=== PATIENT | male | born 1970 | race African-American/Black ===

== ENCOUNTER 2016-09-19 00:26 | Emergency (ER) | payer OTHER ==
[~2016-09-19] VITALS: Ht 182.9 cm; Wt 70.8 kg
[~2016-09-19 00:26] MED LIST: FLEXERIL10 MG PO; IMODIUM MS REL1 EACH PO; NAPROSYN500 MG PO; NORCO 5/3251 TABLET PO; TAMIFLU75 MG PO; ZOFRAN ODT4 MG PO; ZOFRAN4 MG PO
[2016-09-19 01:09] LABS: EOSINOPHIL (%) 0 % (0-5); HEMATOCRIT 39.4 % (38.0-50.0); IMMATURE GRANULOCYTE (%) 0.3 % (0.0-0.7); INSTRUMENT ABS NEUTROPHIL CT 9.2 K/uL; LYMPHOCYTE COUNT 1.5 K/uL (1.0-2.8); MCHC 32.7 G/DL (30.0-36.0); MCV 85.7 FL (86-99); MEAN PLAT.VOLUME 9.2 uM^3 (9.0-12.4); MONOCYTE (%) 6.7 % (3-12); MONOCYTE COUNT 0.8 K/uL (0-0.8); NEUTROPHIL (%) 79.6 % (45-76); NEUTROPHIL COUNT 9.2 K/uL (1.8-6.4); PLATELET COUNT 201 K/uL (156-360); RBC DIS.WIDTH-CV 14.1 % (11.8-14.6); RBC DIS.WIDTH-SD 44.1 % (39-53); WHITE BLOOD COUNT 11.6 K/uL (4.1-10.2)
[2016-09-19 01:17] LABS: AMYLASE 131 IU/L (1-118); CHLORIDE 106 mEq/L (99-109); POTASSIUM 3.7 mEq/L (3.7-5.4); SODIUM 141 mEq/L (136-147)
[2016-09-19 01:19] LABS: GLUCOSE 82 mg/dL (70-99)
[2016-09-19 01:21] LABS: ANION GAP 12 MEQ/L (2-14)
[2016-09-19 01:22] LABS: SERUM ETHYL ALCOHOL 44 mg/dL
[2016-09-19 01:23] LABS: GFR ESTIMATE (CALCULATED) > 59 mL/min/
[2016-09-19 01:24] LABS: UREA NITROGEN (BUN) 10 mg/dL (9-23)
[2016-09-19 01:26] LABS: LIPASE 5 U/L (1.0-51.0)
[2016-09-19] MEDS ORDERED: DEPAKOTE500 MG PO (03:03)
[2016-09-19] MEDS ORDERED: PERCOCET 5/31 TABLET PO (03:09)
[2016-09-19 03:20] VITALS: BP 131/71
[2016-09-19 03:45] LABS: SAMPLE HEMOLYSIS CHECK 0; SAMPLE ICTERIC CHECK 0; SAMPLE LIPEMIA CHECK 0
== END 2016-09-19 03:20 | disposition home or self-care (01) ==
LOC: EME 00:26
PROVIDERS: Emergency Medicine
DX: S01.81XA Laceration without foreign body of other part of head, initial encounter (principal); S63.255A Unspecified dislocation of left ring finger, initial encounter; M66.242 Spontaneous rupture of extensor tendons, left hand; G40.909 Epilepsy, unspecified, not intractable, without status epilepticus; W19.XXXA Unspecified fall, initial encounter; Z88.6 Allergy status to analgesic agent
CPT/HCPCS: 70450; 71010; 72125; 73030; 73130; 73140; 80048; 80164; 80185; 81003; 82150; 83690; 85025; 86850; 86900; 86901; 93005; 99281; 99285; G0480; J2270; J2405; J7030

== ENCOUNTER 2016-10-20 15:56 | Emergency (ER) | payer OTHER ==
[~2016-10-20] VITALS: Ht 185.4 cm; Wt 65.7 kg
[~2016-10-20 15:56] MED LIST changes: +DEPAKOTE500 MG PO; +PERCOCET 5/31 TABLET PO
[2016-10-20 18:52] VITALS: BP 136/73
== END 2016-10-20 19:31 | disposition home or self-care (01) ==
LOC: EXP 15:56 → EME 15:56 → EXP 19:31
DX: M79.89 Other specified soft tissue disorders (principal); M79.645 Pain in left finger(s); F17.200 Nicotine dependence, unspecified, uncomplicated
CPT/HCPCS: 73140; 99281; 99283

== ENCOUNTER 2016-12-21 16:31 | Emergency (ER) | payer OTHER ==
[~2016-12-21] VITALS: Ht 182.9 cm; Wt 64.3 kg
[2016-12-21 18:05] LABS: CHLORIDE 103 mEq/L (99-109); POTASSIUM 4.2 mEq/L (3.7-5.4); SODIUM 136 mEq/L (136-147)
[2016-12-21 18:06] LABS: GLUCOSE 90 mg/dL (70-99)
[2016-12-21 18:08] LABS: ANION GAP 6 MEQ/L (2-14)
[2016-12-21 18:10] LABS: GFR ESTIMATE (CALCULATED) > 59 mL/min/
[2016-12-21 18:11] LABS: ADD MIUA? NO; BILIRUBIN NEGATIVE; BLOOD NEGATIVE; COLOR YELLOW ((YELLOW)); GLUCOSE (STRIP) NEGATIVE; KETONES NEGATIVE; LEUKOCYTES NEGATIVE; NITRITE NEGATIVE; PROTEIN (STRIP) NEGATIVE; SPECIFIC GRAVITY 1.021 (1.000-1.030)
[2016-12-21 18:11] LABS: UREA NITROGEN (BUN) 16 mg/dL (9-23)
[2016-12-21 19:20] VITALS: BP 119/68
[2016-12-22 13:36] LABS: CHLAMYDIA TRACHOMATIS POSITIVE; NEISSERIA GONORRHOEAE NEGATIVE
== END 2016-12-21 19:20 | disposition home or self-care (01) ==
LOC: EME 16:31
PROVIDERS: Physician Assistant
DX: A56.01 Chlamydial cystitis and urethritis (principal); R56.9 Unspecified convulsions; F17.200 Nicotine dependence, unspecified, uncomplicated
CPT/HCPCS: 80048; 81003; 87491; 87591; 99281; 99283